=== PATIENT | male | born 1965 | race Caucasian/White ===

== ENCOUNTER → 2017-12-30 | Outpatient (CLI) | payer BC | LOC: GMAM 10:34 | PROVIDERS: ATTEND Family Medicine | DX: Z12.5 Encounter for screening for malignant neoplasm of prostate (principal) ==

== ENCOUNTER → 2018-02-16 | Outpatient (CLI) | payer BC ==
--- NOTE | 2018-02-17 05:02 | US ---
Procedure: US THYROID Exam Date: 02/16/2018 Ordering Provider: LADONNA GARCIA Clinical Indication: NODULE Comparison: None Technique: Real-time ultrasonography was obtained of the thyroid gland and senior human resources representative images were recorded. Findings: Diffuse heterogeneous echotexture of the thyroid gland. The right lobe of the thyroid gland measures 6.2 x 1.6 x 2.7 cm . There are no suspicious nodules in the right lobe of the thyroid gland. The left lobe of the thyroid gland measures 5.4 x 1.6 x 2.0 cm . There are no suspicious nodules in the left lobe of the thyroid gland The thyroid isthmus is of normal thickness. There are no suspicious nodules in the thyroid isthmus. Impression: 1. Diffuse heterogeneous echotexture of the thyroid gland. 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 2. No suspicious thyroid nodules. ACR TI-RADS recommendations: TR5 (>/=7 points) - FNA if >/=1 cm, follow-up if 0.5 - 0.9 cm every year for 5 years TR4 (4-6 points) - FNA if >/=1.5 cm, follow-up if 1 - 1.4 cm in 1, 2, 3 and 5 years TR3 (3 points) - FNA if >/=2.5 cm, follow -up if 1.5 - 2.4 cm in 1, 3 and 5 years TR2 (2 points) and TR1 (0 points) - No FNA or follow-up * ACR TI-RADS recommends that no more than two nodules with the highest ACR TI-RADS total point should be biopsied and no more than four nodules should be followed. Electronically signed by: Jerson Lloyd MD 02/17/2018 5:00 AM [facility]
== END ==
LOC: US 02-01 09:44
PROVIDERS: ATTEND Family Medicine
DX: E04.1 Nontoxic single thyroid nodule (principal)

== ENCOUNTER → 2018-02-20 | Outpatient (CLI) | payer BC | LOC: GMAM 11:31 | PROVIDERS: ATTEND Family Medicine | DX: R94.6 Abnormal results of thyroid function studies (principal) ==